=== PATIENT | female | born 2000 | race Caucasian/White ===

== ENCOUNTER 2024-01-10 14:44 | Emergency (ER) | payer SELFPAY ==
[~2024-01-10] VITALS: Ht 177.8 cm; Wt 89.0 kg
[2024-01-10 15:11] VITALS: TEMP 98.3; O2SAT 99
[2024-01-10] MEDS: KETOROLAC 60MG/2ML VIAL IM ONE (16:32)
[2024-01-10] MEDS ORDERED: NAPR220C61 MT (16:48)
[2024-01-10 16:53] VITALS: BP 121/74; PULSE 84; RESP 16
== END 2024-01-10 17:08 | disposition home or self-care (01) ==
LOC: ER 14:59
DX: S99.921A Unspecified injury of right foot, initial encounter (principal); V89.2XXA Person injured in unspecified motor-vehicle accident, traffic, initial encounter; Y93.89 Activity, other specified; Y92.89 Other specified places as the place of occurrence of the external cause; Y99.8 Other external cause status
CPT/HCPCS: 81025; 73590; 73610; 73630; 96372; 99284; J1885; Z7610